=== PATIENT | female | born 1990 | race Caucasian/White ===

== ENCOUNTER 2019-01-29 09:19 | Day surgery (SDC) | payer BC ==
[~2019-01-29] VITALS: Ht 165.1 cm; Wt 80.0 kg
[2019-01-29] MEDS ORDERED: SODIUM CHLORIDE 0.9% 1,000 ML IV SCH (09:53)
[2019-01-29 10:00] VITALS: BP 105/74
[2019-01-29] MEDS ORDERED: NORE1TAB85 PO (10:10)
[2019-01-29] MEDS ORDERED: MIDAZOLAM 1 MG/ML, 5ML ONE (11:58)
[2019-01-29] MEDS ORDERED: FENTANYL PF 100 MCG/2ML ONE (11:58)
[2019-01-29] MEDS ORDERED: LIDOCAINE 2%, 20ML ONE (11:59)
[2019-01-29] MEDS ORDERED: ADENOSINE 6 MG/2 ML ONE (11:59)
[2019-01-29] MEDS ORDERED: ACETAMINOPHEN 325 MG TABLET ONE (16:59)
[2019-01-29] MEDS ORDERED: ACETAMINOPHEN 325 MG TABLET PO PRN (17:00)
== END 2019-01-29 17:04 | disposition home or self-care (01) ==
LOC: CACL 09:19
PROVIDERS: ATTEND Internal Medicine Cardiovascular Disease
DX: I47.1 Supraventricular tachycardia (principal); Z72.89 Other problems related to lifestyle
CPT/HCPCS: 93613; 93621; 93623; 93653; 99156; 99157; C1730; C1894; C2630; J2250; J3010; J0153